=== PATIENT | male | born 1990 | race Caucasian/White ===

== ENCOUNTER 2021-01-04 07:34 | Emergency (ER) | payer BC, OTHER ==
--- NOTE | 2021-01-04 08:00 | EDM.PDOC ---
ED HPI GENERAL MEDICAL PROBLEM - General Chief Complaint: Lower Extremity Injury/Pain Stated Complaint: INJURY TO LEFT FOOT Time Seen by Provider: 01/04/21 07:45 - History of Present Illness INITIAL COMMENTS - FREE TEXT/NARRATIVE: History of present illness: [] The patient works overnights and gets up at 7 in the morning. Yesterday an hour before he got off he accidentally struck his left foot with a sledgehammer in the dorsal midfoot. It caused his ankles to give out from underneath him. He did not fall to the ground. He works a shift last night but was unable to comfortably bear weight and had to limit his activities. Because it continues to be painful and swollen he came in today to find out how much damage she had done what is the recommended recovery efforts suggested. Review of systems: As per history of present illness and below otherwise all systems reviewed and negative. Past medical history: As per history of present illness and as reviewed below otherwise noncontributory. Surgical history: As per history of present illness and as reviewed below otherwise noncontributory. Social history: No reported history of drug or alcohol abuse. Family history: As per history of present illness and as reviewed below otherwise noncontributory. Physical exam: Constitutional - well developed, well-nourished and in no acute distress HEENT - normocephalic, no evidence of trauma - external nose and mouth normal - no mass in neck and no JVD - mucosae moist EYES - full EOM, PERRL, no icterus - no evidence of inflammation, injection, or drainage Respiratory - no respiratory distress, equal bilateral expansion Vascular-capillary refill normal in the distal nailbeds of the left lower extremity. Musculoskeletal tender lateral and medial ankle ligaments. Tender dorsum of the left foot from the ankle to the mid metatarsal level. Erythema and swelling of the left ankle and proximal half of the dorsal foot. Otherwise no gross deformity of long bones or joints - no tenderness, swelling or edema Neurologic - Alert and oriented times four - CN II-XII grossly intact - motor sensory and coordination symmetrically normal Psychiatric - appropriate mood and affect with normal thought content Hematologic - No petechiae or purpura - mucosa appropriate color and sclera not pale - normal nail bed color and refill Integument -there is a bunion on the medial edge of the great toe of the left f oot. No rash or evidence of trauma - normal turgor Diagnostics: [] Therapeutics: [] Impression: [] Plan: [] Definitive disposition and diagnosis as appropriate pending reevaluation and review of above. 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 Pain Score (Numeric/FACES): 8 - Related Data Allergies Allergy/AdvReac Type Severity Reaction Status Date / Time No Known Allergies Allergy Verified 01/04/21 07:47 Home Meds: Home Meds Albuterol [Proair HFA] 1 - 2 puff INH DAILY PRN 10/30/14 [History] Gabapentin [Neurontin] 300 mg PO BID 06/01/17 [History] Dextroamphetamine/Amphetamine [Adderall] 01/04/21 [History] Past Medical History - Past Health History Medical/Surgical History: Denies Medical/Surgical History HEENT History: Reports: None Cardiovascular History: Reports: None Respiratory History: Reports: Asthma Genitourinary History: Reports: None Musculoskeletal History: Reports: Fracture Other Musculoskeletal History: fracture x4 to left ankle Neurological History: Reports: Concussion Other Neuro History: "nerve damage r/t concussions" Psychiatric History: Reports: None Endocrine/Metabolic History: Reports: None Hematologic History: Reports: None Immunologic History: Reports: None Oncologic (Cancer) History: Reports: None Dermatologic History: Reports: None - Infectious Disease History Infectious Disease History: Reports: C-Difficile - Past Surgical History Head Surgeries/Procedures: Reports: None GI Surgical History: Reports: Cholecystectomy Musculoskeletal Surgical History: Reports: Other (See Below) Other Musculoskeletal Surgeries/Procedures:: Wrist surgery with pins Social & Family History - Family History Family Medical History: No Pertinent Family History - Tobacco Use Tobacco Use Status *Q: Current Every Day Tobacco User Years of Tobacco use: 11 Packs/Tins Daily: 0.5 - Caffeine Use Caffeine Use: Reports: None - Recreational Drug Use Recreational Drug Use: No Review of Systems - Review of Systems Review Of Systems: Comprehensive ROS is negative, except as noted in HPI. ED EXAM, GENERAL - Physical Exam Exam: See Below Free Text/Narrative:: My physical exam is in the HPI Course - Vital Signs Text/Narrative:: On initial exam and after taking the history it appears that this patient has da antoinette his foot with possible fracture from direct trauma. At the same time because of the impact and what happened to his ankles afterwards he may have sprained his ankle or a avulsed something off one of the malleolus I. X-ray is ordered initially. X-ray reveals no fracture or misalignment of the bones in the ankle or foot on the left lower extremity. Plan ice Alonso rest elevate Ortho referral as needed and [id number] medications for pain Last Recorded V/S: Last Vital Signs Temp 36.9 C 01/04/21 07:44 Pulse 102 H 01/04/21 07:44 Resp 18 01/04/21 07:44 BP 136/75 01/04/21 07:44 Pulse Ox 98 01/04/21 07:44 - Orders/Labs/Meds Orders: Active Orders 24 hr Category Date Time Status Ankle Min 3V Lt [CR] Stat Exams 01/04/21 07:56 Ordered Foot Comp Min 3V Lt [CR] Stat Exams 01/04/21 07:56 Ordered DME for Discharge [COMM] Stat Oth 01/04/21 08:30 Ordered Departure - Departure Time of Disposition: 08:33 Disposition: Home, Self-Care 01 Condition: Good Clinical Impression: Crushing injury of left foot, initial encounter, Left ankle sprain - Discharge Information Instructions: Ankle Sprain, [id number], Crush Injury of the Foot, [id number] Referrals: Devin Fitch MD [Primary Care Provider] - Forms: ED Department Discharge Additional Instructions: Rest ice compress and elevate. Orthopedic clinic if there is prolonged pain or any laxity in the ankle. Loosen the alonso if the toes become pale or numb and return if loosening Alonso does not take care of it. [facility] - Orthopedic Clinic [address], [facility] [address] [place] [address] The following information is given to patients seen in the emergency department who are being discharged to home. This information is to outline your options for follow-up care. We provide all patients seen in our emergency department with a follow-up referral. The need for follow-up, as well as the timing and circumstances, are variable depending upon the specifics of your emergency department visit. If you don't have a primary care physician on staff, we will provide you with a referral. We always advise you to contact your personal physician following an emergency department visit to inform them of the circumstance of the visit and for follow-up with them and/or the need for any referrals to a consulting specialist. The emergency department will also refer you to a specialist when appropriate. This referral assures that you have the opportunity for follow-up care with a specialist. All of these measure are taken in an effort to provide you with optimal care, which includes your follow-up. Under all circumstances we always encourage you to contact your private physician who remains a resource for coordinating your care. When calling for follow-up care, please make the office aware that this follow-up is from your recent emergency room visit. If for any reason you are refused follow-up, please contact the [facility] Emergency Department at and asked to speak to the emergency department charge nurse. Sepsis Event Note (ED) - Evaluation Sepsis Screening Result: No Definite Risk - Focused Exam Vital Signs: Vital Signs Temp Pulse Resp BP Pulse Ox 01/04/21 07:44 36.9 C 102 H 18 136/75 98 - My Orders Last 24 Hours: My Active Orders 01/04/21 07:56 Ankle Min 3V Lt [CR] Stat Foot Comp Min 3V Lt [CR] Stat 01/04/21 08:30 DME for Discharge [COMM] Stat - Assessment/Plan Last 24 Hours: My Active Orders 01/04/21 07:56 Ankle Min 3V Lt [CR] Stat Foot Comp Min 3V Lt [CR] Stat 01/04/21 08:30 DME for Discharge [COMM] Stat
[2021-01-04 08:39] VITALS: BP 122/59; PULSE 100
--- NOTE | 2021-01-04 09:04 | CR ---
Indication: Injury and pain Technique: Left ankle 3 views. Comparison: None Findings: Bones: Alignment is normal. No fractures or bone lesions. Joint spaces: Unremarkable. Soft tissues: Unremarkable. Impression: No sign of acute injury. Dictated by Sigifredo Nagel MD @ 01/04/2021 9:03:[address] Sigifredo Nagel @ Jan 04 2021 9:03AM
--- NOTE | 2021-01-04 09:06 | CR ---
Indication: Injury and pain Technique: Left foot 3 views. Comparison: None Findings: Bones: Alignment is normal. No fractures or bone lesions. Joint spaces: Unremarkable. Soft tissues: Unremarkable. Impression: No sign of acute injury. Dictated by Sigifredo Nagel MD @ 01/04/2021 9:04:[address] Sigifredo Nagel @ Jan 04 2021 9:04AM
== END 2021-01-04 08:44 | disposition home or self-care (01) ==
LOC: MW.ED 07:34
DX: S97.82XA Crushing injury of left foot, initial encounter (principal); S93.402A Sprain of unspecified ligament of left ankle, initial encounter; Z72.0 Tobacco use; W23.0XXA Caught, crushed, jammed, or pinched between moving objects, initial encounter
CPT/HCPCS: 73610-26-LT; 73610-LT; 73630-26-LT; 73630-LT; 99283-25